=== PATIENT | male | born 1960 | race Caucasian/White ===

== ENCOUNTER 2017-12-04 02:44 | Inpatient (IN) | END 2017-12-12 14:58 | disposition home or self-care (01) | DRG 440 ==

== ENCOUNTER 2018-05-23 09:12 | Emergency (ER) | END 2018-05-23 10:56 | disposition home or self-care (01) ==

== ENCOUNTER 2018-07-02 12:07 | Emergency (ER) | END 2018-07-02 12:47 | disposition home or self-care (01) ==

== ENCOUNTER 2018-07-25 09:53 | Emergency (ER) | END 2018-07-25 13:41 | disposition home or self-care (01) ==

== ENCOUNTER 2018-10-09 14:05 | Emergency (ER) | END 2018-10-09 15:12 | disposition home or self-care (01) ==

== ENCOUNTER 2018-10-22 13:59 | Emergency (ER) | END 2018-10-22 17:44 | disposition home or self-care (01) ==

== ENCOUNTER 2019-03-05 08:28 | Emergency (ER) | payer MEDICAID, OTHER ==
[~2019-03-05] VITALS: Ht 185.4 cm; Wt 69.2 kg
[~2019-03-05 08:28] MED LIST: ALBU8.5H8 INH; CETI10CA PO; LEVO500T48 PO; MAG355OR14 PO; NAPR-985 PO; ONDA4TAB8 PO; TRAM50TA2 PO
[2019-03-05 08:35] VITALS: BP 128/82; PULSE 60; RESP 16; Ht 185.4 cm; Wt 69.2 kg
[2019-03-05] MEDS ORDERED: CEPH-443 PO (09:31)
[2019-03-05] MEDS ORDERED: SULF1TAB31 PO (09:31)
--- NOTE | 2019-03-05 10:06 | ERD ---
ER Documentation Chief Complaint Chief Complaint RECURRING ABSCESSES ON RT KNEE HPI 58-year-old male patient with a past medical history of chronic pancreatic pseudocyst presents to the ED with an abscess on the right knee that started about 2 days ago. Describes it as achy and rates it a 10 out of 10. States that he has been taking Tylenol at home with relief of his pain. Denies any trauma or injuries. Denies any chest pain, shortness of breath, nausea, vomiting, diarrhea, neck stiffness. Denies any IV drug use. ROS All systems reviewed and are negative except as per history of present illness. Medications Home Meds Active Scripts Cephalexin* (Keflex*) 500 Mg Capsule, 500 MG PO QID for 7 Days, CAP Prov:LETICIA ALEJO PA-C 03/05/19 Sulfamethoxazole/Trimethoprim* (Bactrim Ds* Tablet) 1 Each Tablet, 1 TAB PO BID, #14 TAB Prov:LETICIA ALEJO PA-C 03/05/19 Tramadol HCl (Tramadol HCl) 50 Mg Tablet, 50 MG PO Q6 PRN for PAIN, #20 TAB Prov:LETICIA ALEJO PA-C 10/22/18 Naproxen* (Naprosyn*) 500 Mg Tablet, 500 MG PO BID PRN for PAIN AND/OR INFLAMMATION, #30 TAB Prov:LETICIA ALEJO PA-C 10/22/18 Cetirizine Hcl* (Zyrtec*) 10 Mg Capsule, 10 MG PO DAILY, #30 TAB.CHEW Prov:ELI DIAZ PA-C 10/09/18 Albuterol Sulfate* (Proair HFA*) 8.5 Gm Hfa.aer.ad, 2 PUFF INH Q4H PRN for WHEEZING AND SOB, #1 INHALER Prov:ELI DIAZ PA-C 10/09/18 Levofloxacin* (Levaquin*) 500 Mg Tablet, 500 MG PO DAILY for 7 Days, TAB Prov:ELI DIAZ PA-C 10/09/18 Ondansetron Hcl* (Zofran*) 4 Mg Tablet, 4 MG PO Q8H PRN for NAUSEA AND/OR VOMITING, #30 TAB Prov:JACKIE REDDY MD 07/25/18 Mag Hydrox/Al Hydrox/Simeth (Maalox Advanced Suspension) 355 Ml Oral.susp, 2 TSP PO TID PRN for PAIN AND/OR INFLAMMATION, #24 OZ Prov:JACKIE REDDY MD 07/25/18 Naproxen* (Naprosyn*) 500 Mg Tablet, 500 MG PO BID PRN for PAIN AND/OR INFLAMMATION, #30 TAB Prov:JACKIE REDDY MD 07/25/18 Allergies Allergies: Coded Allergies: acetaminophen (Verified Allergy, Severe, oral swelling, 07/25/18) PMhx/Soc History of Surgery: No Anesthesia Reaction: No Hx Neurological Disorder: No Hx Respiratory Disorders: Yes (COPD) Hx Cardiac Disorders: No Hx Psychiatric Problems: No Hx Miscellaneous Medical Probl: No (chronic pain) Hx Alcohol Use: Yes (SOCIAL/ OCCASIONAL) Hx Substance Use: Yes (METH USE, marijuana) Hx Tobacco Use: No Smoking Status: Former smoker FmHx Family History: No diabetes, No coronary disease Physical Exam Vitals Vital Signs Date Temp Pulse Resp B/P (MAP) Pulse Ox O2 O2 Flow FiO2 Time Delivery Rate 03/05/19 98.0 60 16 128/82 98 08:35 (97) Physical Exam Const: Tfr-hve-[id number], well-nourished. In no acute distress. Head: Atraumatic, normocephalic Eyes: Normal Conjunctiva without injection ENT: Normal external ear, nose and mouth. Neck: Full range of motion. No meningismus. Resp: Clear to auscultation bilaterally. No wheezing, rhonchi, rales, or crackles. No accessory muscle use. No retractions. Cardio: Regular rate and rhythm, no murmurs Skin: No petechiae or rashes Back: No midline tenderness. No CVA tenderness. Ext: No cyanosis, or edema. Cap refill less than 2 seconds. Distal pulses intact bilaterally. 2 cm spontaneously purulent discharge draining abscess noted on the medial aspect of patient's right knee with 1 cm erythema surrounding the abscess. No warmth to touch the joint space. Full range of motion with flexion, extension of bilateral knees. Neur: Awake and alert. Normal gait and coordination. Muscle strength 5/5. Sensation intact bilaterally. Psych: Normal Mood and Affect Procedures/MDM 58-year-old male patient with a past medical history of chronic pseudocyst presents to the ED complaining of an abscess noted on the medial aspect of patient's right knee. Patient is afebrile and nontoxic-appearing. Copious purulent discharge already spontaneously draining. No indication for incision and drainage at this time. Patient abscess was cleaned with normal saline, clean dressing was also applied. Patient's extremity symptoms have stabilized while they have been evaluated in the department and are appropriate for outpatient follow up. No evidence of fractures, dislocations, compartment syndrome, neurologic injury, vascular injury, open joint, open fracture, tendon laceration, septic arthritis, osteomyelitis, DVT, foreign body, or other emergent conditions. Diagnosis: Abscess Discharge medications: Keflex, Bactrim Follow up with primary care physician in 1-2 days. Instructed patient to return to the ED sooner for any worsening symptoms. Patient's questions were answered. Patient is hemodynamically stable. Patient understood and agreed with discharge plan. Patient discharged stable. Disclaimer: Inadvertent spelling and grammatical errors are likely due to EHR/dictation software use and do not reflect on the overall quality of patient care. Also, please note that the electronic time recorded on this note does not necessarily reflect the actual time of the patient encounter. Departure Diagnosis: Primary Impression: Abscess Condition: Stable Patient Instructions: Abscess, Antiobiotic Treatment Only Referrals: [facility] YOU HAVE RECEIVED A MEDICAL SCREENING EXAM AND THE RESULTS INDICATE THAT YOU DO NOT HAVE A CONDITION THAT REQUIRES URGENT TREATMENT IN THE EMERGENCY DEPARTMENT. FURTHER EVALUATION AND TREATMENT OF YOUR CONDITION CAN WAIT UNTIL YOU ARE SEEN IN YOUR DOCTORS OFFICE WITHIN THE NEXT 1-2 DAYS. IT IS YOUR RESPONSIBILITY TO MAKE AN APPOINTMENT FOR FOLOW-UP CARE. IF YOU HAVE A PRIMARY DOCTOR --you should call your primary doctor and schedule an appointment IF YOU DO NOT HAVE A PRIMARY DOCTOR YOU CAN CALL OUR PHYSICIAN REFERRAL HOTLINE AT IF YOU CAN NOT AFFORD TO SEE A PHYSICIAN YOU CAN CHOSE FROM THE FOLLOWING [facility] [address] [facility] [address] [facility] [facility] [address] [facility] [address] [facility] [address] [facility] [address] [facility]. [facility] YOU HAVE RECEIVED A MEDICAL SCREENING EXAM AND THE RESULTS INDICATE THAT YOU DO NOT HAVE A CONDITION THAT REQUIRES URGENT TREATMENT IN THE EMERGENCY DEPARTMENT. FURTHER EVALUATION AND TREATMENT OF YOUR CONDITION CAN WAIT UNTIL YOU ARE SEEN IN YOUR DOCTORS OFFICE WITHIN THE NEXT 1-2 DAYS. IT IS YOUR RESPONSIBILITY TO MAKE AN APPOINTMENT FOR FOLOW-UP CARE. IF YOU HAVE A PRIMARY DOCTOR --you should call your primary doctor and schedule and appointment IF YOU DO NOT HAVE A PRIMARY DOCTOR YOU CAN CALL OUR PHYSICIAN REFERRAL HOTLINE AT . IF YOU CAN NOT AFFORD TO SEE A PHYSICIAN YOU CAN CHOSE FROM THE FOLLOWING [facility] INSTITUTIONS: [facility] [address] [place] [address] [facility] [address] [place] [place], [place] [id number] [place] [address] [address] [place] [address] [facility] Urgent Care 7 a.m.- 11 p.m. Every Day of the Week NO APPOINTMENT OR AUTHORIZATION NEEDED [facility] Hours: Mon-Fri 9:00 AM - 5:00 PM Additional Instructions: Call your primary care doctor TOMORROW for an appointment during the next 2-3 days.See the doctor sooner or return here if your condition worsens before your appointment time. Follow up in 2 days in your clinic for wound check. LETICIA ALEJO PA-C Mar 05, 2019 10:04
== END 2019-03-05 09:35 | disposition home or self-care (01) ==
LOC: FTE 08:28
DX: L02.415 Cutaneous abscess of right lower limb (principal); J44.9 Chronic obstructive pulmonary disease, unspecified; Z87.891 Personal history of nicotine dependence
CPT/HCPCS: 99283

== ENCOUNTER 2019-04-24 14:27 | Emergency (ER) | payer MEDICAID ==
[~2019-04-24] VITALS: Ht 188 cm; Wt 70.2 kg
[~2019-04-24 14:27] MED LIST changes: +CEPH-443 PO; +SULF1TAB31 PO
[2019-04-24 14:39] VITALS: BP 102/68; PULSE 73; RESP 18; Ht 188 cm; Wt 70.2 kg
[2019-04-24] MEDS ORDERED: ALBUTEROL 0.083% (NEB) 2.5 MG/3 ML AMP NEB STA (15:19)
[2019-04-24] MEDS ORDERED: IPRATROPIUM (NEB) 0.5 MG/2.5 ML AMP NEB STA (15:19)
[2019-04-24] MEDS ORDERED: predniSONE 20 MG TAB PO STA (15:19)
--- NOTE | 2019-04-24 15:22 | ERD ---
ER Documentation Chief Complaint Chief Complaint cough , chest congestion x 2 days HPI 58-year-old male, smoker, with history of COPD, presents to the emergency department, complaining of 2 days with worsening of productive cough, associated with increased respiratory effort and subjective fever. The patient has been using albuterol MDI without improvement of the symptoms. He denies chest pain, no leg edema, no headache, no chills. ROS All systems reviewed and are negative except as per history of present illness. Medications Home Meds Active Scripts Albuterol Sulfate* (Proair HFA*) 8.5 Gm Hfa.aer.ad, 2 PUFF INH Q4, #1 INHALER Prov:FRANK MOJICA MD 04/24/19 Prednisone* (Prednisone*) 20 Mg Tab, 60 MG PO DAILY for 5 Days, TAB Prov:FRANK MOJICA MD 04/24/19 Azithromycin* (Zithromax*) 250 Mg Tablet, 250 MG PO .ZPACK DIRECTED, #6 TAB TAKE 500 MG (2 TABS) THE FIRST DAY THEN 250 MG (1 TAB) DAYS 2-5 Prov:FRANK MOJICA MD 04/24/19 Cephalexin* (Keflex*) 500 Mg Capsule, 500 MG PO QID for 7 Days, CAP Prov:LETICIA ALEJO PA-C 03/05/19 Sulfamethoxazole/Trimethoprim* (Bactrim Ds* Tablet) 1 Each Tablet, 1 TAB PO BID, #14 TAB Prov:LETICIA ALEJO PA-C 03/05/19 Tramadol HCl (Tramadol HCl) 50 Mg Tablet, 50 MG PO Q6 PRN for PAIN, #20 TAB Prov:LETICIA ALEJO PA-C 10/22/18 Naproxen* (Naprosyn*) 500 Mg Tablet, 500 MG PO BID PRN for PAIN AND/OR INFLAMMATION, #30 TAB Prov:LETICIA ALEJO PA-C 10/22/18 Cetirizine Hcl* (Zyrtec*) 10 Mg Capsule, 10 MG PO DAILY, #30 TAB.CHEW Prov:ELI DIAZ PA-C 10/09/18 Albuterol Sulfate* (Proair HFA*) 8.5 Gm Hfa.aer.ad, 2 PUFF INH Q4H PRN for WHEEZ ING AND SOB, #1 INHALER Prov:ELI DIAZ PA-C 10/09/18 Levofloxacin* (Levaquin*) 500 Mg Tablet, 500 MG PO DAILY for 7 Days, TAB Prov:ELI DIAZ PA-C 10/09/18 Ondansetron Hcl* (Zofran*) 4 Mg Tablet, 4 MG PO Q8H PRN for NAUSEA AND/OR VOMITING, #30 TAB Prov:JACKIE REDDY MD 07/25/18 Mag Hydrox/Al Hydrox/Simeth (Maalox Advanced Suspension) 355 Ml Oral.susp, 2 TSP PO TID PRN for PAIN AND/OR INFLAMMATION, #24 OZ Prov:JACKIE REDDY MD 07/25/18 Naproxen* (Naprosyn*) 500 Mg Tablet, 500 MG PO BID PRN for PAIN AND/OR INFLAMMATION, #30 TAB Prov:JACKIE REDDY MD 07/25/18 Allergies Allergies: Coded Allergies: acetaminophen (Verified Allergy, Severe, oral swelling, 07/25/18) PMhx/Soc History of Surgery: No Anesthesia Reaction: No Hx Neurological Disorder: No Hx Respiratory Disorders: Yes (COPD) Hx Cardiac Disorders: No Hx Psychiatric Problems: No Hx Miscellaneous Medical Probl: No (chronic pain) Hx Alcohol Use: Yes (SOCIAL/ OCCASIONAL) Hx Substance Use: Yes (METH USE, marijuana) Hx Tobacco Use: No FmHx Family History: No diabetes, No coronary disease Physical Exam Vitals Vital Signs Date Temp Pulse Resp B/P (MAP) Pulse Ox O2 O2 Flow FiO2 Time Delivery Rate 04/24/19 66 20 97 21 15:32 04/24/19 97.8 73 18 102/68 96 14:39 (79) Physical Exam Const: No acute distress Head: Atraumatic Eyes: Normal Conjunctiva ENT: Normal External Ears, Nose and Mouth. Neck: Full range of motion. No meningismus. Resp: Rhonchi to auscultation bilaterally Cardio: Regular rate and rhythm, no murmurs Abd: Soft, non tender, non distended. Normal bowel sounds Skin: No petechiae or rashes Back: No midline or flank tenderness Ext: No cyanosis, or edema Neur: Awake and alert Psych: Normal Mood and Affect Results 24 hrs Current Medications Medications Dose Sig/Janis Start Time Status Last (Trade) Ordered Route PRN Stop Time Admin Dose Reason Admin Albuterol 5 mg ONCE STAT 04/24/19 DC 04/24/19 (Proventil NEB 15:19 15:32 0.083% (Neb)) 04/24/19 15:23 Ipratropium 0.5 mg ONCE STAT 04/24/19 DC 04/24/19 [place] NEB 15:19 15:32 (Atrovent 04/24/19 15:23 0.02% (Neb)) Prednisone 60 mg ONCE STAT 04/24/19 DC 04/24/19 (Prednisone) PO 15:19 15:28 04/24/19 15:23 EKG read by me: Rate/Rhythm: Regular rate and rhythm at a rate of 63 Intervals: Normal No acute ST changes. No T wave inversion Impression: No evidence of acute ischemia or arrhythmia Procedures/MDM Vital signs stable, no respiratory distress, differential diagnosis include but not limited to: Acute respiratory infection bacterial/viral/fungal. Asthma/COPD, pneumonitis, allergies, GERD. Less likely foreign body aspiration, cardiac related, aspiration pneumonia, malignancy. Physical examination and clinical presentation consistent most likely with COPD exacerbation with early superimposed bacterial infection. During the ED course the patient remained stable, received a nebulized treatment and steroids in the ED presenting overall improvement of the symptoms, no new complaints. Smoking cessation counseling: Patient with history of smoking 1 pack per day for more than 20 years, she has had multiple attempts to quit smoking. We discussed the risks of continued smoking and the benefits of cessation. I recommended different options like nicotine patches, behavioral therapy or even medications. Per patient, he is not ready yet but will consider the options given. Time spent: 6min. Treatment options and clinical impression discussed with the patient who agrees with management. The patient is stable to be treated outpatient and will be discharged home. Some side effects of prescribed medications (headache, rash, nausea, vomiting, diarrhea, drowsiness, habituation, bleeding, hypertension, interactions with other medications) were reviewed. The patient was instructed to follow up with the primary care provider in the next 48h. If symptoms persist, worsen or new symptoms develop, then patient should return to the ED immediately. Disclaimer: Inadvertent spelling and grammatical errors are likely due to [employer]/dictation software use and do not reflect on the overall quality of patient care. Also, please note that the electronic time recorded on this note does not necessarily reflect the actual time of the patient encounter. Departure Diagnosis: Primary Impression: COPD exacerbation Additional Impression: Smoker unmotivated to quit Condition: Stable Patient Instructions: Copd Flare Additional Instructions: Thank you very much for allowing us to participate in your care. Your health and safety is our top priority at [facility]. Call your primary care doctor TOMORROW for an appointment during the next 2-4 days and bring all the information provided. Have prescriptions filled and follow precisely the directions on the label. If the symptoms get worse and your provider is unavailable, return to the Emergency Department immediately. FRANK MOJICA MD April 24, 2019 15:21
[2019-04-24] MEDS ORDERED: AZIT250T PO (16:46)
[2019-04-24] MEDS ORDERED: PRED20TA PO (16:46)
[2019-04-24] MEDS ORDERED: ALBU8.5H8 INH (16:46)
== END 2019-04-24 17:00 | disposition home or self-care (01) ==
LOC: FTE 14:27
DX: J44.9 Chronic obstructive pulmonary disease, unspecified (principal)
CPT/HCPCS: 71046; 93005; 94664; J7512; Z7502; Z7610

== ENCOUNTER 2019-05-20 12:04 | Emergency (ER) | payer MEDICAID, OTHER ==
[~2019-05-20] VITALS: Ht 188 cm; Wt 71.1 kg
[~2019-05-20 12:04] MED LIST changes: +AZIT250T PO; +PRED20TA PO
[2019-05-20 12:30] VITALS: BP 130/78; PULSE 61; RESP 17; Ht 188 cm; Wt 71.1 kg
--- NOTE | 2019-05-20 12:53 | ERD ---
ER Documentation Chief Complaint Chief Complaint RIGHT HAND PAIN X5 MONTHS, HX OF HAND FX HPI Patient is a 58-year-old male who has right hand pain. He is right-hand dominant. Pain is been going on for 5 months and he does have a diagnosed hand fracture was diagnosed here. However he states due to insurance reasons he has been unable to follow-up with orthopedics and continues to have pain in the right hand. No new injury or trauma. 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 He is awaiting approval to see his primary care doctor but cannot get an appointment until June and then will need to wait until authorization is made for him to see orthopedics. He is requesting a splint for comfort. ROS All systems reviewed and are negative except as per history of present illness. Medications Home Meds Active Scripts Albuterol Sulfate* (Proair HFA*) 8.5 Gm Hfa.aer.ad, 2 PUFF INH Q4, #1 INHALER Prov:FRANK MOJICA MD 04/24/19 Prednisone* (Prednisone*) 20 Mg Tab, 60 MG PO DAILY for 5 Days, TAB Prov:FRANK MOJICA MD 04/24/19 Azithromycin* (Zithromax*) 250 Mg Tablet, 250 MG PO .JOYCE DIRECTED, #6 TAB TAKE 500 MG (2 TABS) THE FIRST DAY THEN 250 MG (1 TAB) DAYS 2-5 Prov:FRANK MOJICA MD 04/24/19 Cephalexin* (Keflex*) 500 Mg Capsule, 500 MG PO QID for 7 Days, CAP Prov:LETICIA ALEJO PA-C 03/05/19 Sulfamethoxazole/Trimethoprim* (Bactrim Ds* Tablet) 1 Each Tablet, 1 TAB PO BID, #14 TAB Prov:LETICIA ALEJO PA-C 03/05/19 Tramadol HCl (Tramadol HCl) 50 Mg Tablet, 50 MG PO Q6 PRN for PAIN, #20 TAB Prov:LETICIA ALEJO PA-C 10/22/18 Naproxen* (Naprosyn*) 500 Mg Tablet, 500 MG PO BID PRN for PAIN AND/OR INFLAMMATION, #30 TAB Prov:LETICIA ALEJO PA-C 10/22/18 Cetirizine Hcl* (Zyrtec*) 10 Mg Capsule, 10 MG PO DAILY, #30 TAB.CHEW Prov:ELI DIAZ PA-C 10/09/18 Albuterol Sulfate* (Proair HFA*) 8.5 Gm Hfa.aer.ad, 2 PUFF INH Q4H PRN for WHEEZING AND SOB, #1 INHALER Prov:ELI DIAZ PA-C 10/09/18 Levofloxacin* (Levaquin*) 500 Mg Tablet, 500 MG PO DAILY for 7 Days, TAB Prov:ELI DIAZ PA-C 10/09/18 Ondansetron Hcl* (Zofran*) 4 Mg Tablet, 4 MG PO Q8H PRN for NAUSEA AND/OR VOMITING, #30 TAB Prov:JACKIE REDDY MD 07/25/18 Mag Hydrox/Al Hydrox/Simeth (Maalox Advanced Suspension) 355 Ml Oral.susp, 2 TSP PO TID PRN for PAIN AND/OR INFLAMMATION, #24 OZ Prov:JACKIE REDDY MD 07/25/18 Naproxen* (Naprosyn*) 500 Mg Tablet, 500 MG PO BID PRN for PAIN AND/OR INFLAMMATION, #30 TAB Prov:JACKIE REDDY MD 07/25/18 Allergies Allergies: Coded Allergies: acetaminophen (Verified Allergy, Severe, oral swelling, 07/25/18) PMhx/Soc History of Surgery: No Anesthesia Reaction: No Hx Neurological Disorder: No Hx Respiratory Disorders: Yes (COPD) Hx Cardiac Disorders: No Hx Psychiatric Problems: No Hx Miscellaneous Medical Probl: No (chronic pain) Hx Alcohol Use: Yes (SOCIAL/ OCCASIONAL) Hx Substance Use: Yes (METH USE, marijuana) Hx Tobacco Use: No FmHx Family History: No diabetes Physical Exam Vitals Vital Signs Date Temp Pulse Resp B/P (MAP) Pulse Ox O2 O2 Flow FiO2 Time Delivery Rate 05/20/19 97.1 61 17 130/78 96 12:30 (95) Physical Exam Const: No acute distress Head: Atraumatic Eyes: Normal Conjunctiva ENT: Normal External Ears, Nose and Mouth. Neck: Full range of motion. No meningismus. Resp: Clear to auscultation bilaterally Cardio: Regular rate and rhythm, no murmurs Hand -right: Skin: No laceration, or evidence of external trauma Compartments: Soft Sensation: Intact shoulder/pinky/middle finger/thumb web space Bones: Tender to palpation over base of third metacarpal Snuffbox: Nontender Joints: No effusion Procedures/MDM Patient is here for continued hand pain. He has history of hand fracture which was diagnosed here in September but has not seen orthopedics because of insurance reasons. He was given a Velcro wrist splint for comfort and referral to [facility] to follow-up with orthopedics. Patient counseled regarding my diagnostic impression and care plan. Prior to discharge all questions answered. Pt agrees with treatment plan and understands strict return precautions. Pt is instructed to follow up with primary care provider within 24-48 hours. Precautionary instructions provided including instructions to return to the ER if not improving or for any worsening or changing symptoms or concerns. Departure Diagnosis: Primary Impression: Pain of hand Condition: Stable MATT LOWRY PA-C May 20, 2019 12:53
[2019-05-20] MEDS ORDERED: TRAM50TA2 PO (12:55)
[2019-05-20] MEDS ORDERED: IBUP800T48 PO (12:55)
== END 2019-05-20 13:35 | disposition home or self-care (01) ==
LOC: FTE 12:04
DX: M79.641 Pain in right hand (principal); J44.9 Chronic obstructive pulmonary disease, unspecified
CPT/HCPCS: 29125; Z7502

== ENCOUNTER 2019-05-30 12:25 | Emergency (ER) | payer OTHER ==
[~2019-05-30] VITALS: Ht 188 cm; Wt 68.0 kg
[~2019-05-30 12:25] MED LIST changes: +IBUP800T48 PO
[2019-05-30 12:29] VITALS: BP 151/103; PULSE 81; RESP 18; Ht 188 cm; Wt 68.0 kg
[2019-05-30] MEDS ORDERED: CLIN300C10 PO (12:55)
[2019-05-30] MEDS ORDERED: TRAM50TA2 PO (12:55)
[2019-05-30] MEDS ORDERED: NAPR-985 PO (12:55)
[2019-05-30] MEDS ORDERED: CEFTRIAXONE 1 GM INJ IM ONE (13:00)
[2019-05-30] MEDS ORDERED: LIDOCAINE 1% (MPF) 5 ML VIAL INJ ONE (13:00)
--- NOTE | 2019-05-30 13:02 | ERD ---
ER Documentation Chief Complaint Chief Complaint dental decay req. tooth to be pulled xfew mths; LT facial swelling xam HPI 58-year-old male presenting with pain to his left upper teeth. Patient states that this morning he woke up with some swelling superior to his lip with some pain. He denies any pain with ocular movements and denies fevers. He has not taken medications for symptoms. He has an appointment in 4 days because of the holiday weekend he is unable to be seen earlier. Denies medical problems. Allergy to Tylenol. Surgical history denies. Social history smokes occasionally. ROS All systems reviewed and are negative except as per history of present illness. Medications Home Meds Active Scripts Naproxen* (Naprosyn*) 500 Mg Tablet, 500 MG PO BID PRN for PAIN AND/OR INFLAMMATION, #30 TAB Prov:EMBER CARROLL PA-C 05/30/19 Clindamycin Hcl* (Clindamycin Hcl*) 300 Mg Capsule, 300 MG PO TID for 10 Days, CAP Prov:EMBER CARROLL PA-C 05/30/19 Tramadol HCl (Tramadol HCl) 50 Mg Tablet, 50 MG PO Q4 PRN for PAIN, #20 TAB Prov:EMBER CARROLL PA-C 05/30/19 Tramadol HCl (Tramadol HCl) 50 Mg Tablet, 50 MG PO Q4 PRN for PAIN, #20 TAB Prov:MATT LOWRY PA-C 05/20/19 Ibuprofen* (Motrin*) 800 Mg Tab, 800 MG PO Q6, #30 TAB Prov:MATT LOWRY PA-C 05/20/19 Albuterol Sulfate* (Proair HFA*) 8.5 Gm Hfa.aer.ad, 2 PUFF INH Q4, #1 INHALER Prov:FRANK MOJICA MD 04/24/19 Prednisone* (Prednisone*) 20 Mg Tab, 60 MG PO DAILY for 5 Days, TAB Prov:FRANK MOJICA MD 04/24/19 Azithromycin* (Zithromax*) 250 Mg Tablet, 250 MG PO .ZPACK DIRECTED, #6 TAB TAKE 500 MG (2 TABS) THE FIRST DAY THEN 250 MG (1 TAB) DAYS 2-5 Prov:FRANK MOJICA MD 04/24/19 Cephalexin* (Keflex*) 500 Mg Capsule, 500 MG PO QID for 7 Days, CAP Prov:LETICIA ALEJO PA-C 03/05/19 Sulfamethoxazole/Trimethoprim* (Bactrim Ds* Tablet) 1 Each Tablet, 1 TAB PO BID, #14 TAB Prov:LETICIA ALEJO PA-C 03/05/19 Tramadol HCl (Tramadol HCl) 50 Mg Tablet, 50 MG PO Q6 PRN for PAIN, #20 TAB Prov:LETICIA ALEJO PA-C 10/22/18 Naproxen* (Naprosyn*) 500 Mg Tablet, 500 MG PO BID PRN for PAIN AND/OR INFLAMMATION, #30 TAB Prov:LETICIA ALEJO PA-C 10/22/18 Cetirizine Hcl* (Zyrtec*) 10 Mg Capsule, 10 MG PO DAILY, #30 TAB.CHEW Prov:ELI DIAZ PA-C 10/09/18 Albuterol Sulfate* (Proair HFA*) 8.5 Gm Hfa.aer.ad, 2 PUFF INH Q4H PRN for WHEEZING AND SOB, #1 INHALER Prov:ELI DIAZ PA-C 10/09/18 Levofloxacin* (Levaquin*) 500 Mg Tablet, 500 MG PO DAILY for 7 Days, TAB Prov:ELI DIAZ PA-C 10/09/18 Ondansetron Hcl* (Zofran*) 4 Mg Tablet, 4 MG PO Q8H PRN for NAUSEA AND/OR VOMITING, #30 TAB Prov:JACKIE REDDY MD 07/25/18 Mag Hydrox/Al Hydrox/Simeth (Maalox Advanced Suspension) 355 Ml Oral.susp, 2 TSP PO TID PRN for PAIN AND/OR INFLAMMATION, #24 OZ Prov:JACKIE REDDY MD 07/25/18 Naproxen* (Naprosyn*) 500 Mg Tablet, 500 MG PO BID PRN for PAIN AND/OR INFLAMMATION, #30 TAB Prov:JACKIE REDDY MD 07/25/18 Allergies Allergies: Coded Allergies: acetaminophen (Verified Allergy, Severe, oral swelling, 07/25/18) PMhx/Soc History of Surgery: No Anesthesia Reaction: No Hx Neurological Disorder: No Hx Respiratory Disorders: Yes (COPD) Hx Cardiac Disorders: No Hx Psychiatric Problems: No Hx Miscellaneous Medical Probl: No (chronic pain) Hx Alcohol Use: Yes (SOCIAL/ OCCASIONAL) Hx Substance Use: Yes (METH USE, marijuana) Hx Tobacco Use: Yes Smoking Status: Current every day smoker FmHx Family History: No diabetes, No coronary disease, No other Physical Exam Vitals Vital Signs Date Temp Pulse Resp B/P (MAP) Pulse Ox O2 O2 Flow FiO2 Time Delivery Rate 05/30/19 97.9 81 18 151/103 97 12:29 (119) Physical Exam GENERAL: The patient is well-appearing, well-nourished, in no acute distress HEENT: Atraumatic. Conjunctivae are pink. Pupils equal, round, and reactive to light. There is no scleral icterus. Tympanic membranes clear bilaterally. Oropharynx clear. NECK: C-spine is soft and supple. There is no meningismus. There is no cervical lymphadenopathy. CHEST: Clear to auscultation bilaterally. There are no rales, wheezes or rhonchi. HEART: Regular rate and rhythm. No murmurs, clicks, rubs or gallops. SKIN: Mild swelling noted to the left upper jaw space. No erythema or warmth. Results 24 hrs Current Medications Medications Dose Sig/Janis Start Time Status Last (Trade) Ordered Route PRN Stop Time Admin Dose Reason Admin Ceftriaxone 1 gm ONCE ONCE 05/30/19 Sodium IM 13:00 05/30/19 (Rocephin) 13:01 Lidocaine 5 ml ONCE ONCE 05/30/19 (Xylocaine INJ 13:00 05/30/19 1% (Mpf)) 13:01 Procedures/MDM ER course: Rocephin given in ED. MDM: 58-year-old male presenting with pain to his left upper tooth. Patient has a dental abscess and we treated with antibiotics. He is recommended follow-up with dentist. I have low suspicion for ocular involvement. I have low suspicion for airway impingement. I have low suspicion for sepsis or deep tracking abscess. Patient is discharged with strict ER precautions and supportive medications. Patient is told if symptoms change or worsen to return immediately to the ER. All questions answered at discharge Departure Diagnosis: Primary Impression: Tooth disease Condition: Stable Patient Instructions: Tooth Abscess Referrals: COMMUNITY CLINICS YOU HAVE RECEIVED A MEDICAL SCREENING EXAM AND THE RESULTS INDICATE THAT YOU DO NOT HAVE A CONDITION THAT REQUIRES URGENT TREATMENT IN THE EMERGENCY DEPARTMENT. FURTHER EVALUATION AND TREATMENT OF YOUR CONDITION CAN WAIT UNTIL YOU ARE SEEN IN YOUR DOCTORS OFFICE WITHIN THE NEXT 1-2 DAYS. IT IS YOUR RESPONSIBILITY TO MAKE AN APPOINTMENT FOR FOLOW-UP CARE. IF YOU HAVE A PRIMARY DOCTOR --you should call your primary doctor and schedule an appointment IF YOU DO NOT HAVE A PRIMARY DOCTOR YOU CAN CALL OUR PHYSICIAN REFERRAL HOTLINE AT IF YOU CAN NOT AFFORD TO SEE A PHYSICIAN YOU CAN CHOSE FROM THE FOLLOWING [facility] CL[facility]ICS [facility] [address] [facility]. [facility] [address] [facility] [facility] [address] [facility]. [facility] [address] [facility]. [facility] [address] [facility]. [facility] [address] Additional Instructions: FOLLOW UP WITH YOUR PRIMARY CARE PHYSICIAN TOMORROW.Return to this facility if you are not improving as expected. EMBER CARORLL PA-C May 30, 2019 13:02
== END 2019-05-30 13:41 | disposition home or self-care (01) ==
LOC: FTE 12:25
DX: K08.9 Disorder of teeth and supporting structures, unspecified (principal); F17.210 Nicotine dependence, cigarettes, uncomplicated; J44.9 Chronic obstructive pulmonary disease, unspecified
CPT/HCPCS: 96372; J0696; Z7502; Z7610